=== PATIENT | female | born 1960 | race Caucasian/White ===

== ENCOUNTER → 2018-08-02 | Outpatient (CLI) | payer OTHER ==
--- NOTE | 2018-08-02 20:46 | Diagnostic Imaging Report ---
PROCEDURE: MRI lumbar spine. TECHNIQUE: Multiplanar, multisequence MRI of the lumbar spine was performed without contrast. DATE: August 02, 2018. COMPARISON: None. INDICATION: 57-year-old female, fall. Low back pain extending down the right leg and occasionally down the left. FINDINGS: There is a very mild lumbar levocurvature. The anterior to posterior alignment of the lumbar spine is unremarkable. There is no evidence of diffuse marrow infiltrating or replacing process. There is no compression deformity or other acute fracture. There is apparent increased signal in the T11 vertebral body on the sagittal T2 fat saturation sequence. This may be artifactual relating to an imaging as fat saturation. There is no identified T1 signal loss or bone lesion of the T11 vertebral body. The visualized cord and conus medullaris is unremarkable and terminates at the L1 level. There is moderate to severe disc height loss. L1-L2: There is no disc bulge. The facet joints and ligamentum flavum are unremarkable. There is no foraminal narrowing. There is no spinal canal stenosis. L2-L3: There is no disc bulge. The facet joints and ligamentum flavum are unremarkable. There is no foraminal narrowing. There is no spinal canal stenosis. L3-L4: There is mild diffuse disc bulge eccentric to the right. The facet joints and ligamentum flavum are unremarkable. There is mild right foraminal narrowing. There is no spinal canal stenosis. L4-L5: There is mild diffuse disc bulge. The facet joints and ligamentum flavum are unremarkable. There is mild narrowing of the left lateral recess. There is moderate left and mild right foraminal narrowing. There is no spinal canal stenosis. L5-S1: There is mild diffuse disc bulge. The facet joints and ligamentum flavum are unremarkable. There is mild left foraminal narrowing. There is no spinal canal stenosis. IMPRESSION: 1. Mild disc degenerative changes of the lumbar spine as described level by level above. Findings are most notable at L3-L4, L4-L5, and L5-S1. 2. No identified compression deformity or fracture. Dictated by: Dictated on workstation # [id number]
== END ==
LOC: RAD 14:14
PROVIDERS: ATTEND Nurse Practitioner Family
DX: M51.17 Intervertebral disc disorders with radiculopathy, lumbosacral region (principal); M48.07 Spinal stenosis, lumbosacral region; M43.8X6 Other specified deforming dorsopathies, lumbar region; W19.XXXA Unspecified fall, initial encounter
CPT/HCPCS: 72148

== ENCOUNTER → 2020-09-05 | Outpatient (CLI) | payer OTHER ==
[~2020-09-05] MED LIST: CATHETER FLUSH 10 ML SYR IV PRN; HOLD METFORMIN - RECEIVED CONTRAST 20 ML VIAL IV SCH; IOHEXOL 350 MG/ML 100 ML (OMNIPAQUE 350) VIAL IV ONE; NS 100 ML (IVPB) BAG IV ONE
[2020-09-05 12:08] LABS: BUN/CREATININE RATIO 13; CARBON DIOXIDE 28 MMOL/L (21-32); CHLORIDE 102 MMOL/L (98-107); CREATININE SERUM 0.78 MG/DL (0.60-1.30); GFR ESTIMATED > 60; POTASSIUM 3.9 MMOL/L (3.6-5.0); SODIUM 139 MMOL/L (135-145)
[2020-09-05 12:09] LABS: ALANINE AMINOTRANSFERASE 27 U/L (0-55); ALBUMIN 4.6 GM/DL (3.2-4.5); ALKALINE PHOSPHATASE 119 U/L (40-136); BILIRUBIN,TOTAL 0.2 MG/DL (0.1-1.0); CALCIUM 9.9 MG/DL (8.5-10.1); GLUCOSE 95 MG/DL (70-105); TOTAL PROTEIN 7.7 GM/DL (6.4-8.2)
--- NOTE | 2020-09-05 13:16 | Diagnostic Imaging Report ---
CLINICAL INDICATION: Patient with neck pain with no range of motion. Patient says posterior aspect of the neck feels swollen and not able to sleep with pain. Patient's symptoms started in June. EXAM: Axial CT scan of the cervical spine performed without IV contrast. Sagittal and coronal reformatted images are created. Auto Exposure Controls were utilized during the CT exam to meet ALARA standards for radiation dose reduction. COMPARISON: None. FINDINGS: There is reversal of the normal cervical lordosis. There is no acute cervical spine fracture. There are degenerative spurs involving the cervical spine most pronounced at the C4-C7 levels. There is note of unfused posterior elements involving the T1 vertebra. There is no significant neck soft tissue abnormality, fat stranding, or fluid collection. Emphysematous disease is seen involving the visualized upper lung terrell. C1-C2: There are hypertrophic spurs involving the atlantoodontoid interval anteriorly. There is no significant central canal narrowing. C2-C3: There is moderate left facet arthropathy and mild right facet arthropathy. There is mild left neural foramen narrowing. There is no significant central canal or right neural foramen narrowing. C3-C4: There is very subtle grade 1 anterolisthesis of C3 on C4. There are small bilateral uncinate spurs and possible posterior disk spur. There is zkjg-[id number] loss of disk space height. There is severe left facet arthropathy/hypertrophy and mild right facet arthropathy. There is [id number]-[id number] bilateral neural foramen narrowing. There is at least mild central canal narrowing. C4-C5: There is subtle grade 1 anterolisthesis of C4 on C5. There is moderate left facet arthropathy and mild right facet arthropathy. There appears to be a diffuse disk bulge. There is no significant central canal narrowing. There is disypdxk-xe-[id number] left neural foramen narrowing and wmby-qz-ljkcnhoh right neural foramen narrowing. C5-C6: There is diffuse disk bulge with severe loss of disk space height, endplate sclerosis and bilateral uncinate spurs. There is at least mild central canal narrowing. There is severe bilateral neural foramen narrowing (right side more than the left). C6-C7: There is a diffuse disk bulge with severe loss of disk space height, endplate irregularity and endplate sclerosis. There are bilateral uncinate spurs. There is at least mild central canal narrowing. There is moderate left neural foramen narrowing and iubmtzoh-pi-mhuvlq right neural foramen narrowing. C7-T1: There is no significant central spinal canal or neural foramen narrowing. IMPRESSION: 1: There is no acute cervical spine fracture. There is reversal of cervical lordosis. 2: There is multilevel cervical spine degenerative disease including grade 1 anterolisthesis C3 on C4 and C4 on C5. This is described above. 3: There is no significant neck soft tissue abnormality. 4: Emphysematous lung disease. Dictated by: Dictated on workstation # [id number]
== END ==
LOC: RAD FS 11:13
PROVIDERS: ATTEND Nurse Practitioner Family
DX: M47.812 Spondylosis without myelopathy or radiculopathy, cervical region (principal); M50.21 Other cervical disc displacement, high cervical region; M50.221 Other cervical disc displacement at C4-C5 level; M50.222 Other cervical disc displacement at C5-C6 level; M50.223 Other cervical disc displacement at C6-C7 level; M48.02 Spinal stenosis, cervical region; M43.12 Spondylolisthesis, cervical region; M89.9 Disorder of bone, unspecified
CPT/HCPCS: 36415; 72127; 80053